=== PATIENT | female | born 1940 | race Caucasian/White ===

== ENCOUNTER 2019-09-01 08:43 | Observation (INO) | payer MEDICARE, SELFPAY ==
[2019-05-11 13:23] VITALS: BMI 25.3
[2019-09-01] VITALS (11 sets, daily range): BP systolic 133–179; BP diastolic 52–73; PULSE 67–85; RESP 15–18; TEMP 36.6–36.8; O2SAT 95–100; BMI 24.3; BMI 24.1
--- NOTE | 2019-09-01 08:56 | EKG12_ITS ---
Test Reason : SYNCOPE Blood Pressure : / mmHG Vent. Rate : 074 BPM Atrial Rate : 074 BPM P-R Int : 172 ms QRS Dur : 082 ms QT Int : 366 ms P-R-T Axes : 064 029 051 degrees QTc Int : 406 ms Normal sinus rhythm Possible Left atrial enlargement Nonspecific ST abnormality Abnormal ECG Reconfirmed by MUSTAPHA BOWERS, TAJ ([id number]), purchasing expeditor NARESH OTT ([id number] on 09/06/2019 8:25:00 AM Referred By: Ayesha Piper Confirmed By:TAJ LUCIANO MD
--- NOTE | 2019-09-01 08:56 | CT_ITS ---
STUDY: CT BRAIN WITHOUT CONTRAST REASON FOR EXAM: Female, 78 years old. Syncopal episode. RADIATION DOSAGE (If Supplied By Facility): CTDIvol = ( 44.99 ) mGy, DLP = ( 745.49 ) mGycm TECHNIQUE: Transaxial CT imaging of the brain was performed without administration of intravenous contrast material. Individualized dose optimization techniques were used for this CT. COMPARISON: No relevant priors. FINDINGS: Normal soft tissue structures. Normal calvarium. There is mild cerebral atrophy with widening of the extra-axial spaces and ventricular dilatation. Normal white matter tracts of the cerebral hemispheres. Normal basal ganglia and thalami. Normal brainstem. There is mild cerebellar atrophy. There is no intracranial hemorrhage. There are no findings of an acute ischemic infarction. Normal visualized paranasal sinuses. CT/Brain/Head without Contrast IMPRESSION: Chronic involutional changes of the brain. Electronically Signed: Panda Diez, at 9:53 EST , Service support ,
--- NOTE | 2019-09-01 08:57 | RAD_ITS ---
STUDY: X-RAY CHEST REASON FOR EXAM: Female, 78 years old. Syncopal episodes. TECHNIQUE: Single AP portable view of the chest. COMPARISON: None. FINDINGS: EKG electrodes are seen. There is evidence of an accessory right first rib. Hyperinflation. No acute abnormality is seen. There is no demonstrated pleural abnormality. Normal size heart. Normal mediastinum and chris. Normal visualized pulmonary arteries. There is atherosclerotic calcification of the aortic arch with tortuosity. Normal visualized thoracic spine. Normal visualized ribs, clavicles, and shoulders. There is no demonstrated abnormality of the visualized soft tissue structures of the upper abdomen. RAD/Chest 1 View (Portable) IMPRESSION: Hyperinflation. Accessory right first rib. Electronically Signed: Panda Diez, at 9:30 EST , Service support ,
--- NOTE | 2019-09-01 09:04 | ED.DCSUM_ITS ---
- ER Visit Summary Date of Service: 09/01/19 Chief Complaint: Syncope History of Present Illness: The patient is a 78 F who presents with her for syncopal episode. Patient was sitting in her recliner prior to bedtime last night. She was starting to fall asleep, and she got up to use the bathroom to put her eyedrops in. She felt dizzy and sat down on the toilet. Her said that she briefly lost consciousness. She was breathing irregularly and talking gibberish. He also said her eyes rolled back into her head. He denies any seizure activity. The patient regained consciousness spontaneously. She seemed to be doing better and they went to bed. He checked on her several times through the night, and she seemed to be doing okay. She woke up today with persistent dizziness. She feels lightheaded. She has had this on and off for months. She has also been having migraines and vision issues. She is following with ophthalmology and is being treated for cataracts. She denies any other speech changes or vision changes. Denies any facial droop, focal weakness or numbness. Denies chest pain. She does not take blood thinners. Denies any trauma. Physical Examination: Afebrile and vital signs are unremarkable. Blood pressure 163/73. She is alert and oriented. No acute distress. Normal gait. Cranial nerves grossly intact. Normal strength and sensation. Normal cerebellar testing. NIH stroke scale is 0. Heart regular rate and rhythm. Lungs clear. Skin appears normal. Test Results: EKG shows sinus rhythm at a rate of [address] changes. No acute ischemia or infarction pattern. We are awaiting blood work, chest x-ray, and CT brain. Emergency Department Course and Treatment: Patient presents after a syncopal episode. She has vision changes, but they seem to be chronic and associated with cataracts. She did have some speech changes, but I believe these were related to the syncopal episode. She does not have stroke symptoms or focal stroke findings. Her NIH was 0. She was placed on the monitor. We checked an EKG, labs, and will check imaging. She will likely need admission for further care. Chest x-ray showed nothing acute. CT brain showed chronic changes. CBC, BMP, coags, troponin all unremarkable. On reevaluation, patient had no new or different symptoms. Neurologic exam was stable. I believe she will need inpatient care given her continued symptoms, age, and risk factors. She will need evaluation for syncope. Although she does not have classic symptoms of stroke. I believe she will need further neurologic imaging. I did not order CTAs emergently as her NIH is 0. I spoke with the hospitalist who will admit for further care. Treatment Plan: As above Disposition: PCU observation Impression: 1. Syncope This note was generated with [employer] dictation software. It may contain incorrect words, spelling, and punctuation that were not noted in review of the chart prior to signing ED Disposition - Plan for ED Patient: Referrals: Amanda Hankins, [id number] [Primary Care Provider] -
[2019-09-01 09:25] LABS: Absolute Lymphocyte Count 1.45 X10^3/uL (0.83-4.51); Absolute Neutrophil Count 4.9 X10^3/uL (2.0-7.7); Basophil# 0.03 X10^3/uL; Basophil% 0.4 % (0-1); Eosinophil# 0.03 X10^3/uL; Eosinophils% 0.4 % (0-5); Hematocrit 38.7 % (37-47); Hemoglobin 12.9 g/dL (12.0-15.0); Lymphocyte # 1.45 X10^3/ul (4.0); Mean Corp Hgb Conc 33.3 g/dL (32-36); Mean Corpuscular Hgb 31.2 pg (27.0-32.0); Mean Corpuscular Volume 93.5 fL (81-99); Mean Platelet Vol. 9.5 fl (6.2-12.0); Monocyte# 0.77 X10^3/uL; Monocyte% 10.6 % (0-10); NRBC Flagged by Analyzer 0 % (0-5); Neutrophil # 4.93 X10^3/uL (2.7-7.7); Neutrophil % 68.2 % (47-70); Platelet Count 242 K/mm3 (150-450); RBC Distribution Width CV 13.2 % (11.6-14.6); RBC Distribution Width SD 45.1 fl (35.1-43.9); Red Blood Count 4.14 M/mm3 (4.2-5.4); White Blood Count 7.2 K/mm3 (4.4-11.0)
[2019-09-01 09:37] LABS: Prothrombin Time (Protime)PT. 13.2 SECONDS (11.7-14.9)
[2019-09-01 09:44] LABS: Anion Gap 7 (5-15); BUN 24 mg/dL (7-18); BUN/Creat Ratio 23.8 RATIO (10-20); Calcium,Total 10.1 mg/dL (8.5-10.1); Chloride 100 mmol/L (98-107); Creatinine, Serum 1.01 mg/dL (0.55-1.02); EST Glomerular Filtration Rate 56 mL/min (>60); Est Glom Filt Rate - Afr Amer 68 mL/min (>60); Estimated Creatinine Clearance 34.08 ml/min; Glucose 108 mg/dL (74-106); Potassium 4.4 mmol/L (3.5-5.1); Sodium Level 136 mmol/L (136-145)
--- NOTE | 2019-09-01 10:13 | HP.PCM_ITS ---
History of Present Illness Date of Admission: 09/01/19 Chief Complaint: syncope The patient is a 78 year old F with past medical history as listed which includes hypertension, hyperlipidemia and breast cancer. She was admitted through the ED on 09/01/2019 with a complaint of syncope. History was taken from patient and her . Patient got up to go to the bathroom prior to going to bed last night and says she felt dizzy and sat down on the toilet. She called out to her that she was feeling dizzy. states when he went in the she became confused and started talking gibberish and then he noted that she briefly lost consciousness. He noted that her eyes rolled back into her head and she appeared to have stopped breathing and this lasted for a few seconds. He said he gave her [id number] resuscitation and told her to breathe. Patient responded that she was breathing and he notices that she started coming around. She had a similar incident about 6 weeks ago but refused to seek medical care then. Patient felt dizzy upon waking up this morning, and also felt lightheaded so she decided to see her PCP. However PCP was fully booked and could not fit her and so they decided to come into the ED. Patient admits to bilateral blurred vision since she had a cataract surgery in June 2019 and states she is followed up with her associate material handler who told her that there is no problem with her eyes. She denied any tingling or numbness or focal weakness. Review of systems otherwise negative. In the ED vitals were significant for blood pressure 163/73. EKG showed normal sinus rhythm with heart rate of 74. CT of the brain was negative for any intracranial pathology and states x-ray showed no acute cardiopulmonary pathology. Both CBC and BMP were unremarkable. She has been admitted to be managed for syncope. Of note initial troponin was also negative. 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) Medical History: Medical History (Last Reviewed 05/11/19 @ 13:22 by Nohemy Overton) Anemia D64.9 Breast cancer C50.919 Diastolic dysfunction I51.9 Heart disease I51.9 Hyperlipidemia E78.5 Osteopenia M85.80 RIGHT LOWER JAW LASER SURGERY Hypertension I10 Allergies codeine Allergy (Verified 09/01/19 08:47) Nausea Penicillins Allergy (Verified 09/01/19 08:47) Rash sulfamethoxazole [From Septra] Allergy (Verified 09/01/19 08:47) Unknown trimethoprim [From Septra] Allergy (Verified 09/01/19 08:47) Rash meperidine HCl [From Demerol] Adverse Reaction (Verified 09/01/19 08:47) Nausea Home Medications: Ambulatory Orders Medication Instructions Recorded Atenolol 50 mg PO DAILY 10/02/14 Calcium Carb/Vitamin D 1 tab PO DAILY@0800 10/02/14 [Caltrate-600 With Vit D Tab] Hydrochlorothiazide 12.5 mg PO DAILY 10/02/14 Ipratropium [place] 0.06% 2 spray NASAL DAILY 10/02/14 [ATROVENT NASAL SPRAY] Multivitamins,Ther W-Minerals 1 tablet PO DAILY 10/02/14 [Multivitamin With Minerals] Vitamin B Complex [B Complex] 1 tab PO DAILY 10/02/14 Lactulose 30 ml PO QHS 04/01/15 Acetaminophen [Tylenol Extra 500 mg PO Q6H PRN PRN 11/21/15 Strength] L.acidoph,Paracasei, B.lactis 1 - 2 tab PO DAILY 11/21/15 [Probiotic] Meloxicam [Mobic] 15 mg PO DAILY 01/19/17 Anastrozole [Arimidex] 1 mg PO DAILY 90 Days #90 tablet 03/06/19 Levothyroxine [Synthroid] 25 mcg PO DAILY 05/11/19 Carboxymethylcellulose Sodium 1 drp EACH EYE 4X/DAY PRN PRN 09/01/19 [Refresh Tears] Sodium Chloride [Christiano-128] 1 drp EACH EYE QHS 09/01/19 Surgical History: Surgical History (Last Reviewed 05/11/19 @ 13:22 by Nohemy Overton) History of appendectomy Z90.49 History of dilatation and curettage Z98.890 History of root canal procedure Z98.890 History of tonsillectomy Z90.89 Hx of arthroscopic knee surgery Z98.890 bilateral Surgical History: - - lumpectomy for breast cancer Psychiatric History: No pertinent psych hx 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 Denies: Chest Pain, Chest Pressure, Chest Tightness, Heaviness, Light Headedness, Palpitations Respiratory: Denies: Cough, Shortness of Breath, Shortness of breath at rest, Shortness of breath upon exertion, Sputum production Gastrointestinal: Denies: Abdominal Pain, Nausea, Vomiting Genitourinary: Denies: Dysuria Musculoskeletal: Denies: Joint Pain, Joint Tenderness Skin: Denies: Rash, Wounds Neurological: Reports: Blurred vision, Headaches. Denies: Balance problems, Change in Speech, Slurred speech, Confusion, Difficulty swallowing, Focal weakness, Incoordination, Numbness, Tingling, Tremor, Seizures Psychiatric: Denies: Anxiety, Depression, Homicidal Ideations, Suicidal Ideations Hematologic/ Lymphatic: Denies: Easy Bruising, Easy Bleeding VTE Information - Inpt Only VTE Present on Admission: No VTE Pharm Prophylaxis ordered?: Yes Patient Problems: Active and Suspected Problems (Last Reviewed 05/11/19 @ 13:22 by Nohemy Overton) Syncope (Acute) - Physical Exam Vitals/I&O's: Vital Signs Temp Pulse Resp BP Pulse Ox 98.2 F 78 15 170/52 H 100 09/01/19 08:44 09/01/19 10:00 09/01/19 10:00 09/01/19 10:00 09/01/19 10:00 Oxygen Delivery Method Room Air Weight: 129 lb Body Mass Index (BMI) 24.3 General: Alert, Oriented x3, Cooperative, No apparent distress HEENT: Atraumatic, PERRLA, EOMI, Normocephalic Oral: Moist Mucosa Neck: Supple, No JVD, Negative Carotid Bruits Lungs: Clear to auscultation, Normal air movement Cardiovascular: Regular rate, Regular Rhythm, Normal S1, Normal S2, No murmurs Abdomen: Bowel Sounds Present, Soft, Non Tender, Non-Distended, No Hepato- splenomegaly Extremities: No clubbing, No cyanosis, No edema, Capillary Refill Less than 3 Seconds Skin: No rashes, No breakdown Musculoskeletal: No Tenderness to Palpation of Joints or Extremities Lymphatic: No Cervical, Supraclavicular, or Inguinal Adenopathy Neurological: Cranial nerves II-XII grossly intact, Neuro grossly intact, Motor Exam 5/5 strength throughout, Sensory exam intact to light touch and pain, Coordination normal Psych/Mental Status: Normal Affect, Appropriate, Alert and oriented to time, place, person, mood and affect Laboratory Results 09/01/19 09:15: WBC 7.2, RBC 4.14 L, Hgb 12.9, Hct 38.7, MCV 93.5, MCH 31.2, MCHC 33.3, RDW Std Deviation 45.1 H, RDW Coeff of Jess 13.2, Plt Count 242, MPV 9.5, Immature Gran % (Auto) 0.400, Neut % (Auto) 68.2, Lymph % (Auto) 20.0, [place] % (Auto) 10.6 H, Eos % (Auto) 0.4, Baso % (Auto) 0.4, Absolute Neuts (auto) 4.9, Absolute Lymphs (auto) 1.45, Nucleated RBC % 0 09/01/19 09:15: PT 13.2, INR 1.0, APTT 30.0 09/01/19 09:15: Sodium 136, Potassium 4.4, Chloride 100, Carbon Dioxide 29.0, Anion Gap 7, BUN 24 H, Creatinine 1.01, Estim Creat Clear Calc 34.08, Est GFR (MDRD) Af Amer 68, Est GFR (MDRD) Non-Af 56 L, BUN/Creatinine Ratio 23.8 H, Glucose 108 H, Calcium 10.1, Troponin I < 0.[address] 09/01/19 08:56 IMPRESSION: Chronic involutional changes of the brain. Electronically Signed: Panda Diez, at 9:53 EST , Service support , Chest X-Ray 09/01/19 08:57 IMPRESSION: Hyperinflation. Accessory right first rib. Electronically Signed: Panda Diez, at 9:30 EST , Service support , Assessment/Plan All Active Problems (Last Reviewed 05/11/19 @ 13:22 by Nohemy Overton) Other specified disorders of bone density and structure, unspecified site (Acute) Osteopenia (Acute) Vaginal dryness (Acute) Jaw pain (Acute) Jaw pain, non-TMJ (Acute) Hyponatremia (Acute) Syncope (Acute) 78-year-old female admitted with complaint of syncope 1. Syncope * etiology is not clear, as it could be neurological, such as a seizure or stroke, or even possibly cardiac * admit to PCU with telemetry * fall precautions * CT of the brain was unremarkable * get MRI of brain and CTA of head and neck * 2D echo * PT/OT consult * neurology consult * get EEG 2. Hypertension: on hydrochlorthiazide and atenolol. controlled 3. Hypothyroidism: on synthroid 4. History of breast cancer: s/p lumpectomy. On anastrozole DVT prophylaxis: lovenox Code Visit OBSV E&M: 16746 Initial observation care L3
--- NOTE | 2019-09-01 10:16 | NURSING ---
PCU KORAM SYNCOPE
--- NOTE | 2019-09-01 11:04 | CON.PCM_ITS ---
Problem List (1) Syncope Status: Acute Reason for Consult Date of Consultation: 09/01/19 Reason for Consultation: Syncope History of Present Illness: The patient is a 78 year old F with PMH HTN, HLD, history of breast cancer stat us post left lumpectomy, hypothyroidism, history of migraine admitted with syncope. History is obtained from the patient as well as medical records and patient's . Per she got up to go to the bathroom yesterday 08/31/2019 prior to going to bed and felt dizzy and sat on the toilet, later per she became less responsive, fainted with her eyes rolling back, she also appeared to have stopped breathing following which her gave breaths into her mouth, the whole event lasted for about 15 to 20 seconds per , following this the patient became conscious, there is no tongue bite, no urinary incontinence or postictal confusion, denies any witnessed seizures. Per she also had a syncopal episode about 6 weeks ago. Per patient she has a history of migraine headaches, and since her cataract surgery recently, her migraine headaches frequency has increased. But otherwise at baseline per patient her migraine headaches are occasional. At present patient denies any dizziness, focal motor weakness, sensory loss, visual disturbances or speech disturbances. Per patient lives with , does not use cane or walker to ambulate, denies any frequent falls, does drive and does not need any assistance for ADLs. 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) Medical History: Medical History (Last Reviewed 05/11/19 @ 13:22 by Nohemy Overton) Anemia D64.9 Breast cancer C50.919 Diastolic dysfunction I51.9 Heart disease I51.9 Hyperlipidemia E78.5 Osteopenia M85.80 RIGHT LOWER JAW LASER SURGERY Hypertension I10 Allergies codeine Allergy (Verified 09/01/19 08:47) Nausea Penicillins Allergy (Verified 09/01/19 08:47) Rash sulfamethoxazole [From Septra] Allergy (Verified 09/01/19 08:47) Unknown trimethoprim [From Septra] Allergy (Verified 09/01/19 08:47) Rash meperidine HCl [From Demerol] Adverse Reaction (Verified 09/01/19 08:47) Nausea Home Medications: Ambulatory Orders Medication Instructions Recorded Atenolol 50 mg PO DAILY 10/02/14 Calcium Carb/Vitamin D 1 tab PO DAILY@0800 10/02/14 [Caltrate-600 With Vit D Tab] Hydrochlorothiazide 12.5 mg PO DAILY 10/02/14 Ipratropium [place] 0.06% 2 spray NASAL DAILY 10/02/14 [ATROVENT NASAL SPRAY] Multivitamins,Ther W-Minerals 1 tablet PO DAILY 10/02/14 [Multivitamin With Minerals] Vitamin B Complex [B Complex] 1 tab PO DAILY 10/02/14 Lactulose 30 ml PO QHS 04/01/15 Acetaminophen [Tylenol Extra 500 mg PO Q6H PRN PRN 11/21/15 Strength] L.acidoph,Paracasei, B.lactis 1 - 2 tab PO DAILY 11/21/15 [Probiotic] Meloxicam [Mobic] 15 mg PO DAILY 01/19/17 Anastrozole [Arimidex] 1 mg PO DAILY 90 Days #90 tablet 03/06/19 Levothyroxine [Synthroid] 25 mcg PO DAILY 05/11/19 Carboxymethylcellulose Sodium 1 drp EACH EYE 4X/DAY PRN PRN 09/01/19 [Refresh Tears] Sodium Chloride [Christiano-128] 1 drp EACH EYE QHS 09/01/19 Surgical History: Surgical History (Last Reviewed 05/11/19 @ 13:22 by Nohemy Overton) History of appendectomy Z90.49 History of dilatation and curettage Z98.890 History of root canal procedure Z98.890 History of tonsillectomy Z90.89 Hx of arthroscopic knee surgery Z98.890 bilateral Lives: Spouse/ Significant Other Smoking Status: Never smoker Alcohol: None Drugs: None - *Family History Maternal Family History: Family History (Last Reviewed 05/11/19 @ 13:22 by Nohemy Overton) Mother Heart disease Father Heart disease Father Hypertension Review of Systems Constitutional: Reports: - - Complete ROS negative except as documented in HPI Patient Problems: Active and Suspected Problems (Last Reviewed 05/11/19 @ 13:22 by Nohemy Overton) Syncope (Acute) - Physical Exam Vitals/I&O's: Vital Signs Temp Pulse Resp BP Pulse Ox 98.2 F 78 15 170/52 H 100 09/01/19 08:44 09/01/19 10:00 09/01/19 10:00 09/01/19 10:00 09/01/19 10:00 Oxygen Delivery Method Room Air Weight: 58.513 kg Body Mass Index (BMI) 24.3 General: Alert HEENT: Normocephalic Neck: Supple Lungs: Normal air movement Cardiovascular: Normal S1, Normal S2 Abdomen: Bowel Sounds Present Extremities: No cyanosis Neurological: - - Conscious, alert, AOA x3, CN II to XII grossly intact, power 5/5 both upper and lower extremities, plantars B/L flexor, no pronator drift, no sensory loss, no cerebellar signs, gait deferred, reflexes + B/L B/S/T/K/A, No NR, fundus not visualized Psych/Mental Status: Normal Affect Laboratory Results 09/01/19 09:15: WBC 7.2, RBC 4.14 L, Hgb 12.9, Hct 38.7, MCV 93.5, MCH 31.2, MCHC 33.3, RDW Std Deviation 45.1 H, RDW Coeff of Jess 13.2, Plt Count 242, MPV 9.5, Immature Gran % (Auto) 0.400, Neut % (Auto) 68.2, Lymph % (Auto) 20.0, [place] % (Auto) 10.6 H, Eos % (Auto) 0.4, Baso % (Auto) 0.4, Absolute Neuts (auto) 4.9, Absolute Lymphs (auto) 1.45, Nucleated RBC % 0 09/01/19 09:15: PT 13.2, INR 1.0, APTT 30.0 09/01/19 09:15: Sodium 136, Potassium 4.4, Chloride 100, Carbon Dioxide 29.0, Anion Gap 7, BUN 24 H, Creatinine 1.01, Estim Creat Clear Calc 34.08, Est GFR (MDRD) Af Amer 68, Est GFR (MDRD) Non-Af 56 L, BUN/Creatinine Ratio 23.8 H, Glucose 108 H, Calcium 10.1, Troponin I < 0.015 Assessment/Plan All Active Problems (Last Reviewed 05/11/19 @ 13:22 by Nohemy Overton) Other specified disorders of bone density and structure, unspecified site (Acute) Osteopenia (Acute) Vaginal dryness (Acute) Jaw pain (Acute) Jaw pain, non-TMJ (Acute) Hyponatremia (Acute) Syncope (Acute) The patient is a 78 year old F with PMH HTN, HLD, history of breast cancer status post left lumpectomy, hypothyroidism, history of migraine admitted with syncope. History is obtained from the patient as well as medical records and patient's . Per she got up to go to the bathroom yesterday 08/31/2019 prior to going to bed and felt dizzy and sat on the toilet, later per she became less responsive, fainted with her eyes rolling back, she also appeared to have stopped breathing following which her gave breaths into her mouth, the whole event lasted for about 15 to 20 seconds per , following this the patient became conscious, there is no tongue bite, no urinary incontinence or postictal confusion, denies any witnessed seizures. Per she also had a syncopal episode about 6 weeks ago. Per patient she has a history of migraine headaches, and since her cataract surgery recently, her migraine headaches frequency has increased. But otherwise at baseline per sydni pizano her migraine headaches are occasional. At present patient denies any dizziness, focal motor weakness, sensory loss, visual disturbances or speech disturbances. Per patient lives with , does not use cane or walker to ambulate, denies any frequent falls, does drive and does not need any assistance for ADLs. CT head done on admission reported nothing acute Impression Syncope Plan -MRI brain -EEG -TTE -30 day event recorder -Cardiology consult -PT/OT/ST -GI/DVT prophylaxis -Fall precautions -Further medical management per hospitalist team -Please call with questions if any -Follow-up with neurology in 6 weeks -Thank you for allowing us to participate in patient's care and management This note has been generated using [employer] dictation software. It may contain incorrect words, spellings and punctuation that were not noted in the review of the note prior to signing Code Visit Inpatient E&M: 76390 Init Hosp L3
--- NOTE | 2019-09-01 11:10 | ECHOD_ITS ---
Reason For Study: SYNCOPE Procedure This was a 2D Doppler, Color Flow transthoracic echocardiogram. Exam performed portable in patient room. Left Ventricle Normal LV size. Left ventricular systolic function is normal. The estimated ejection fraction is 65 %. Stage 2 diastolic dysfunction. No regional wall motion abnormalities noted. Right Ventricle Normal RV size. Normal systolic function. Atria Normal left atrium. Normal right atrium. Mitral Valve Mild diffuse mitral valve thickening. Mild (1+) eccentric mitral valve insufficiency. Tricuspid Valve Normal tricuspid valve. Mild (1+) tricuspid valve insufficiency. Pulmonary artery systolic pressure is 34 mmHg. Aortic Valve Normal aortic valve. Trisinus/trileaflet aortic valve. Pulmonic Valve Normal pulmonic valve. Great Vessels Normal aortic root. The pulmonary artery is normal size. Normal inferior vena cava. Pericardium/Pleural No pericardial effusion. MMode/2D Measurements & Calculations LVIDd: 4.2 cm IVSd: 0.72 cm Ao root diam: 3.1 cm LVIDs: 2.9 cm LVPWd: 0.85 cm RVDd: 3.4 cm FS: 30.7 % LAV(MOD-bp): 43.0 ml LVAd ap4: 27.2 cm2 SV(MOD-sp4): 46.3 ml LAV(MOD-bp) Indexed: 27.9 ml/m2 EDV(MOD-sp4): 78.5 ml LAV(MOD-sp2): 40.5 ml EDV(sp4-el): 81.8 ml LAV(MOD-sp4): 43.5 ml LVAs ap4: 15.4 cm2 ESV(MOD-sp4): 32.2 ml ESV(sp4-el): 33.2 ml EF(MOD-sp4): 59.0 % EF(sp4-el): 59.4 % SV(sp4-el): 48.6 ml LA A4 area: 17.8 cm2 LA dimension(2D): 3.5 cm RA A4 area: 16.0 cm2 Time Measurements MV dec time: 0.21 sec Doppler Measurements & Calculations MV E max onesimo: 103.7 cm/sec Lat Peak E' Onesimo: 6.5 cm/sec Med Peak E' Onesimo: 7.5 cm/sec MV A max onesimo: 111.4 cm/sec E/E' lat: 16.1 E/E' med: 13.8 MV E/A: 0.93 Ao V2 max: 149.0 cm/sec AI max onesimo: 414.1 cm/sec LV V1 max: 139.2 cm/sec Ao max P.9 mmHg AI max P.6 mmHg LV V1 max P.7 mmHg AI dec slope: 335.7 cm/sec2 AI P1/2t: 361.3 msec PA V2 max: 90.4 cm/sec PI end-d onesimo: 106.2 cm/sec TR max onesimo: 274.1 cm/sec TR max P.1 mmHg Interpretation Summary Normal LV size. Left ventricular systolic function is normal. The estimated ejection fraction is 65 %. Stage 2 diastolic dysfunction. The global longitudinal strain = -23.9 % (normal). Ordering Physician: Ayesha Piper Referring Physician: ARNULFO DIOR Performed By: Brenda Paul, RDCS, RVT
--- NOTE | 2019-09-01 11:13 | CT_ITS ---
STUDY: CTA HEAD AND NECK WITH CONTRAST REASON FOR EXAM: Female, 78 years old. Syncopal episodes last night RADIATION DOSAGE (If Supplied By Facility): CTDIvol = ( 13.47 ) mGy, DLP = ( 548.90 ) mGycm TECHNIQUE: CT angiography was performed with a multi-detector CT scanner. Data acquisition was obtained from the skull base through the vertex following intravenous administration of IV 75mL [id number]-370 75mL. MIP images were reconstructed from the axial data set. Post-processing of the angiographic images was performed, with multiplanar reformation and 3D reconstruction. Individualized dose optimization techniques were used for this CT. COMPARISON: CT head September 01, 2019,, MRI brain May 08, 2016 FINDINGS: Normal bilateral petrous carotid arteries. Normal right cavernous carotid artery with a normal supraclinoid bifurcation. There is calcified plaque formation of the left cavernous carotid artery, without a cross-sectional luminal stenosis. Normal right A1 segments of the anterior cerebral artery. Normal left A1 segments of the anterior cerebral artery. There is non-visualization of the anterior communicating artery (ACOM). Normal bilateral A2 segments of the anterior cerebral arteries. Normal right M1 and M2 segments of the middle cerebral arteries, with a normal M1 bifurcation. Normal left M1 and M2 segments of the middle cerebral arteries, with a normal M1 bifurcation. There is non-visualization of the right posterior communicating artery (PCOM). There is non-visualization of the left posterior communicating artery (PCOM). Normal bilateral vertebral arteries. Normal basilar artery with a normal basilar bifurcation. The visualized bilateral superior cerebellar (SCA) arteries are normal. Normal bilateral P1, P2 and visualized P3 segments of the posterior cerebral arteries. There is no demonstrated aneurysm of the [place]. There is mild atrophy. Findings appear very similar to the prior study MRI May 08, 2016 allowing for differences in technique. AORTIC ARCH: Normal visualized aortic arch. Normal origins of the brachiocephalic, left common carotid, and left subclavian arteries. RIGHT CAROTID ARTERIES: There is atherosclerotic tortuous elongation of the right common carotid artery. There is mild atherosclerotic plaque formation with minimal narrowing of the right carotid bulb. There is mild atherosclerotic plaque formation of the origin of the right internal carotid artery with less than 50% cross sectional diameter stenosis. There is atherosclerotic tortuous elongation of the cervical portion of the right internal carotid artery. There is mild atherosclerotic plaque formation of the origin of the right external carotid artery with less than 50% cross sectional diameter stenosis. LEFT CAROTID ARTERIES: There is atherosclerotic tortuous elongation of the left common carotid artery. There is mild atherosclerotic plaque formation with minimal narrowing of the left carotid bulb. Normal origin of the left internal carotid (ICA) artery without a hemodynamically significant stenosis. There is atherosclerotic tortuous elongation of the cervical portion of the left internal carotid artery. Normal origin of the left external carotid artery (ECA). VERTEBRAL ARTERIES: Normal bilateral vertebral arteries. There is visualized degenerative change within the cervical spine. There is multilevel disc space narrowing and endplate sclerosis. C4-C5 C5-C6 there is moderate to severe right neural foramina narrowing. C6-C7 there is moderate left neural foraminal narrowing. There is visualized by apical thickening. CT/CTA Head AND Neck W/ Contrast IMPRESSION: Less than 50% stenosis of the right internal carotid artery, no significant stenosis of the left internal carotid artery. No evidence of aneurysmal dilatation stenosis or hemodynamically significant atherosclerotic disease of the cerebral vessels. Mild atrophy stable appearing brain parenchyma when compared to the prior study. Electronically Signed: Carlene Orlando MD at 12:40 EST Tel , Service support ,
--- NOTE | 2019-09-01 11:13 | MRI_ITS ---
STUDY: MRI BRAIN WITHOUT CONTRAST REASON FOR EXAM: Female, 78 years old. Syncope and incoherent speech TECHNIQUE: Standardized multiplanar fat and water weighted pulse sequences were obtained. COMPARISON: CT of the brain September 01, 2019 MRI of the brain May 08, 2016 FINDINGS: Moderate cerebral atrophy.. Normal white matter tracts of the supratentorial brain. Normal bilateral basal ganglia. Normal thalami. There is no extra-axial fluid accumulation. Normal flow voids within the major intracranial circulation suggesting patency by spin echo criteria. Normal sella turcica, pituitary gland, infundibular stalk, optic chiasm and hypothalamus. Normal tectal plate and pineal gland. Normal midbrain, cem and medulla. Normal cerebellum. Normal basal cisterns. Normal bilateral temporal bones. Normal bilateral internal auditory canals. Postsurgical changes status post bilateral optical lens implant. Mucous retention cyst in floor of right maxillary sinus. Minor mucosal thickening of the left maxillary and bilateral ethmoid air cells. Normal calvarium and skull base. Normal visualized soft tissue structures. Normal visualized upper cervical spine. No significant change since prior study MRI/Brain without Contrast IMPRESSION: Moderate atrophy without appreciable white matter disease or evidence for acute infarct Electronically Signed: Jeremy Farooq MD at 16:14 EST , Service support ,
[2019-09-01] MEDS: 0.9% Normal Saline 1,000 ML 75 ML IV (12:11)
[2019-09-01 13:29] LABS: Cholesterol 202 mg/dL (200); High Density Lipoprotein 72 mg/dL; Triglycerides 102 mg/dL; Very Low Density Lipoprotein 20 mg/dL (5-40)
[2019-09-01 15:03] LABS: Hemoglobin A1c 5.6 % (4.2-6.3)
--- NOTE | 2019-09-01 16:02 | EEG ---
- Electroencephalogram Date of service 09/01/2019 History EEG is being done in this 78 yr F to rule out seizures EEG Description: This is an 18 channel EEG with 10-20 lead placement system. Bipolar montages, and Referential montages were reviewed. Photic stimulation and Hyperventilation were performed. The posterior dominant rhythm is 10 HZ synchronous, symmetric, reacting to eye opening and closing. Photo stimulation elicited normal driving response but no abnormal photoparoxysmal response, Hyperventilation did not elicit any abnormal photoparoxysmal response. Sleep was identified. There is no abnormal background slowing noted. There was no epileptiform discharges or electrographic seizures noted during this recording. Muscle artefact noted during the record. EEG Interpretation This is a normal awake and asleep EEG. There is no epileptiform discharges or electrographic seizures noted during the record.
[2019-09-02] VITALS (7 sets, daily range): BP systolic 135–178; BP diastolic 52–83; PULSE 66–83; RESP 16; TEMP 36.5–36.9; O2SAT 96–99
[2019-09-02] MEDS: Levothyroxine 25 MCG TABLET PO (05:02)
[2019-09-02 06:24] LABS: Absolute Lymphocyte Count 1.68 X10^3/uL (0.83-4.51); Basophil# 0.03 X10^3/uL; Basophil% 0.5 % (0-1); Eosinophil# 0.08 X10^3/uL; Eosinophils% 1.2 % (0-5); Hematocrit 35.3 % (37-47); Hemoglobin 11.6 g/dL (12.0-15.0); Lymphocyte # 1.68 X10^3/ul (4.0); Lymphocyte % 25.6 % (19-41); Mean Corp Hgb Conc 32.9 g/dL (32-36); Mean Corpuscular Hgb 30.9 pg (27.0-32.0); Mean Corpuscular Volume 94.1 fL (81-99); Mean Platelet Vol. 9.9 fl (6.2-12.0); Monocyte# 0.71 X10^3/uL; Monocyte% 10.8 % (0-10); NRBC Flagged by Analyzer 0 % (0-5); Neutrophil # 4.03 X10^3/uL (2.7-7.7); Neutrophil % 61.6 % (47-70); Platelet Count 210 K/mm3 (150-450); RBC Distribution Width CV 13.6 % (11.6-14.6); RBC Distribution Width SD 46.5 fl (35.1-43.9); Red Blood Count 3.75 M/mm3 (4.2-5.4); White Blood Count 6.6 K/mm3 (4.4-11.0)
[2019-09-02 06:45] LABS: Anion Gap 6 (5-15); BUN 22 mg/dL (7-18); BUN/Creat Ratio 22.9 RATIO (10-20); Chloride 105 mmol/L (98-107); Creatinine, Serum 0.96 mg/dL (0.55-1.02); EST Glomerular Filtration Rate 59 mL/min (>60); Est Glom Filt Rate - Afr Amer 72 mL/min (>60); Estimated Creatinine Clearance 35.86 ml/min; Glucose 96 mg/dL (74-106); Potassium 3.9 mmol/L (3.5-5.1); Sodium Level 139 mmol/L (136-145)
[2019-09-02] MEDS: Calcium Carb/Vitamin D 1 TABLET Tablet PO (09:25)
[2019-09-02] MEDS: Multivitamins,Ther W-Minerals Tablet 1 TABLET PO (09:25)
[2019-09-02] MEDS: Vitamin B Comp W-C Capsule 1 CAP PO (09:25)
[2019-09-02] MEDS: Anastrozole 1 MG Tablet PO (09:26)
[2019-09-02] MEDS: hydroCHLOROthiazide 12.5mg 12.5 MG PO (09:27)
[2019-09-02] MEDS: Atenolol 50 MG Tablet PO (09:28)
[2019-09-02] MEDS: Meloxicam 15 MG Tablet PO (09:28)
--- NOTE | 2019-09-02 13:39 | PCM.DC ---
- Discharge Diagnoses Current Active Problems: Current Active and Chronic Problems (Last Reviewed 05/11/19 @ 13:22 by Nohemy Overton) Syncope (Acute) You will use the following diet at home:: Cardiac Your food should be the consistency of: Regular Your liquids should be the consistency of: Regular/Thin Discharge Activity: Return to Normal Activity Weight Bearing Status: Weight bearing as tolerated Call your doctor if you observe: Shortness of breath, Dizziness, Fainting spells, Increased palpitations (irregular heartbeat) Instructions: What Is Syncope?, Diagnosing Syncope Additional Instructions: to have 30 day event monitor placed on Wednesday09/04/19. for 48 hour event monitor placement prior to discharge. Started on low dose statin o/a of elevated statin Allergies/Adverse Reactions: Allergies codeine Allergy (Verified 09/01/19 08:47) Nausea Penicillins Allergy (Verified 09/01/19 08:47) Rash sulfamethoxazole [From Septra] Allergy (Verified 09/01/19 08:47) Unknown trimethoprim [From Septra] Allergy (Verified 09/01/19 08:47) Rash meperidine HCl [From Demerol] Adverse Reaction (Verified 09/01/19 08:47) Nausea Medications to take at Discharge Atenolol 50 mg PO DAILY 10/02/14 Calcium Carb/Vitamin D [Caltrate-600 With Vit D Tab] 1 tab PO DAILY@0800 10/02/14 Hydrochlorothiazide 12.5 mg PO DAILY 10/02/14 Ipratropium [place] 0.06% [ATROVENT NASAL SPRAY] 2 spray NASAL DAILY 10/02/14 Multivitamins,Ther W-Minerals [Multivitamin With Minerals] 1 tablet PO DAILY 10/02/14 Vitamin B Complex [B Complex] 1 tab PO DAILY 10/02/14 Lactulose 30 ml PO QHS 04/01/15 Acetaminophen [Tylenol] 500 mg PO Q6H PRN PRN 11/21/15 L.acidoph,Paracasei, B.lactis [Probiotic] 1 - 2 tab PO DAILY 11/21/15 Meloxicam [Mobic] 15 mg PO DAILY 01/19/17 Anastrozole [Arimidex] 1 mg PO DAILY 90 Days #90 tablet 03/06/19 Levothyroxine [Synthroid] 25 mcg PO DAILY 05/11/19 Carboxymethylcellulose Sodium [Refresh Tears] 1 drp EACH EYE 4X/DAY PRN PRN 09/01/19 Sodium Chloride [Christiano-128] 1 drp EACH EYE QHS 09/01/19 Atorvastatin Calcium [Lipitor] 20 mg PO QHS #30 tab 09/02/19 The following prescriptions were given: Atorvastatin Calcium [Lipitor] 20 mg PO QHS #30 tab Transmission Status: Pending to [facility] [facility]. Orders to be completed after discharge: Cardiac Holter Monitor, Set-Up [[facility]] Location: None Selected Primary Care Physician: Amanda Hankins [employer] [Primary Care Provider] - Please follow up with your Primary Care Physician in: one week Test Results: Test results from this visit will be discussed in further detail at your follow-up appointment, if applicable. Please Follow Up With: London Rodriguez MD When: 1-2 weeks; call office for appointment Proposed Discharge Date: 09/02/19
--- NOTE | 2019-09-02 14:52 | DS.PCM_ITS ---
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 Electronically Signed: Panda Diez, at 9:53 EST , Service support , Chest X-Ray 09/01/19 08:57 IMPRESSION: Hyperinflation. Accessory right first rib. Electronically Signed: Panda Diez, at 9:30 EST , Service support , Brain MRI 09/01/19 11:13 IMPRESSION: Moderate atrophy without appreciable white matter disease or evidence for acute infarct Electronically Signed: Jeremy Farooq MD at 16:14 EST , Service support , Head/Neck CTA 09/01/19 11:13 IMPRESSION: Less than 50% stenosis of the right internal carotid artery, no significant stenosis of the left internal carotid artery. No evidence of aneurysmal dilatation stenosis or hemodynamically significant atherosclerotic disease of the cerebral vessels. Mild atrophy stable appearing brain parenchyma when compared to the prior study. Electronically Signed: Carlene Orlando MD at 12:40 EST Tel , Service support , Interpretation Summary Normal LV size. Left ventricular systolic function is normal. The estimated ejection fraction is 65 %. Stage 2 diastolic dysfunction. The global longitudinal strain = -23.9 % (normal). neurology- Dr Mina Operations: None Procedures: 2-D Echocardiogram, Electroencephalogram Summary of Care Provided: The patient is a 78 year old F with past medical history as listed which includes hypertension, hyperlipidemia and breast cancer. She was admitted through the ED on 09/01/2019 with a complaint of syncope. History was taken from patient and her . Patient got up to go to the bathroom prior to going to bed last night and says she felt dizzy and sat down on the toilet. She called out to her that she was feeling dizzy. states when he went in the she became confused and started talking gibberish and then he noted that she briefly lost consciousness. He noted that her eyes rolled back into her head and she appeared to have stopped breathing and this lasted for a few seconds. He said he gave her [id number] resuscitation and told her to breathe. Patient responded that she was breathing and he notices that she started coming around. She had a similar incident about 6 weeks ago but refused to seek medical care then. Patient felt dizzy upon waking up this morning, and also felt lightheaded so she decided to see her PCP. However PCP was fully booked and could not fit her and so they decided to come into the ED. Patient admits to bilateral blurred vision since she had a cataract surgery in June 2019 and states she is followed up with her compacting machine operator/tender who told her that there is no problem with her eyes. She denied any tingling or numbness or focal weakness. Review of systems otherwise negative. In the ED vitals were significant for blood pressure 163/73. EKG showed normal sinus rhythm with heart rate of 74. CT of the brain was negative for any intracranial pathology and states x-ray showed no acute cardiopulmonary pathology. Both CBC and BMP we re unremarkable. She was admitted to be managed for syncope. Of note initial troponin was also negative. Neurology was consulted. Patient had an EEG which was normal. MRI of the brain showed no evidence of stroke and CTA of the head and neck showed less than 50% stenosis of the right internal carotid artery no significant stenosis of the left internal carotid artery and no evidence of aneurysmal dilatation, stenosis or hemodynamically significant atherosclerotic disease of the cerebral vessels. Patient had a 2D echo which showed EF of 65% with stage II diastolic dysfunction and normal left ventricular size with trace mitral valve insufficiency tricuspid valve insufficiency. Aortic valve was normal as well as pulmonary valve. Patient remained stable. Lipid panel showed mildly elevated cholesterol and she was started on low-dose atorvastatin. She was discharged home with a 48-hour Holter monitor and is to have a 30-day event monitor placed the outpatient on 09/04/2019. She is to follow-up with her primary care doctor and neurology and is also to follow-up with cardiology- she was referred to Dr Rodriguez . Patient seen and examined prior to discharge. She had no complaints and felt well. Dizziness and lightheadedness had and recurred. Review of systems otherwise negative. Labs and vitals reviewed. Medications reviewed and reconciled. Patient did express concern about her blood pressure she said he had been fluctuating with systolic ranging from the 160s down to the 130s. Patient was counseled to continue her current home medications- atenolol, and to keep a log of her blood pressure at home to review with her primary care doctor and for adjustment of medications to be made as needed. o/e: Vital Signs Height 5 ft 1 in Weight: 127 lb 10.362 oz Weight in Pounds 127.6 lbs Pulse Ox 96 Temperature 98.2 F Pulse Rate [Standing] 83 Pulse Rate [Sitting] 72 Pulse Rate [Lying] 68 Pulse Rate 66 Respiratory Rate 16 Blood Pressure [Standing] 135/58 Blood Pressure [Sitting] 142/63 Blood Pressure [Lying] 135/52 Blood Pressure 153/64 Blood Pressure Position Sitting General: Alert, Oriented x3, Cooperative, No apparent distress HEENT: Atraumatic, PERRLA, EOMI, Normocephalic Oral: Moist Mucosa Neck: Supple, No JVD, Negative Carotid Bruits Lungs: Clear to auscultation, Normal air movement Cardiovascular: Regular rate, Regular Rhythm, Normal S1, Normal S2, No murmurs Abdomen: Bowel Sounds Present, Soft, Non Tender, Non-Distended, No Hepato- splenomegaly Extremities: No clubbing, No cyanosis, No edema, Capillary Refill Less than 3 Seconds Skin: No rashes, No breakdown Musculoskeletal: No Tenderness to Palpation of Joints or Extremities Lymphatic: No Cervical, Supraclavicular, or Inguinal Adenopathy Neurological: Cranial nerves II-XII grossly intact, Neuro grossly intact, Motor Exam 5/5 strength throughout, Sensory exam intact to light touch and pain, Coordination normal Psych/Mental Status: Normal Affect, Appropriate, Alert and oriented to time, place, person, mood and affect Plan as above. Results of 48-hour Holter monitor and 30-day event monitor is to be sent to Dr. Rodriguez for interpretation and also to be sent to her primary care doctor. - Physical Exam Vitals/I&O's: Vital Signs Temp Pulse Resp BP Pulse Ox 98.2 F 66 16 153/64 H 96 09/02/19 12:49 09/02/19 12:49 09/02/19 12:49 09/02/19 12:49 09/02/19 12:49 Oxygen Delivery Method Room Air Weight: 127 lb 10.362 oz Body Mass Index (BMI) 24.1 Intake and Output for Last 24 Hours 08/31/19 09/01/19 09/02/19 23:59 23:59 23:59 Intake Total 968.75 / 968.75 571.25 / 571.25 Balance 968.75 / 968.75 571.25 / 571.25 Laboratory Results 09/01/19 09:15: Hemoglobin A1c 5.6 09/02/19 05:53: WBC 6.6, RBC 3.75 L, Hgb 11.6 L, Hct 35.3 L, MCV 94.1, MCH 30.9, MCHC 32.9, RDW Std Deviation 46.5 H, RDW Coeff of Jess 13.6, Plt Count 210, MPV 9.9, Immature Gran % (Auto) 0.300, Neut % (Auto) 61.6, Lymph % (Auto) 25.6, [place] % (Auto) 10.8 H, Eos % (Auto) 1.2, Baso % (Auto) 0.5, Absolute Neuts (auto) 4.0, Absolute Lymphs (auto) 1.68, Nucleated RBC % 0 09/02/19 05:53: Sodium 139, Potassium 3.9, Chloride 105, Carbon Dioxide 28.0, Anion Gap 6, BUN 22 H, Creatinine 0.96, Estim Creat Clear Calc 35.86, Est GFR (MDRD) Af Amer 72, Est GFR (MDRD) Non-Af 59 L, BUN/Creatinine Ratio 22.9 H, Glucose 96, Calcium 9.0 Discharge Activity: Return to Normal Activity Weight Bearing Status: Weight bearing as tolerated Call your doctor if you observe: Shortness of breath, Dizziness, Fainting sp ells, Increased palpitations (irregular heartbeat) Home Medications: Medications to take at Discharge Atenolol 50 mg PO DAILY 10/02/14 Calcium Carb/Vitamin D [Caltrate-600 With Vit D Tab] 1 tab PO DAILY@0800 10/02/14 Hydrochlorothiazide 12.5 mg PO DAILY 10/02/14 Ipratropium [place] 0.06% [ATROVENT NASAL SPRAY] 2 spray NASAL DAILY 10/02/14 Multivitamins,Ther W-Minerals [Multivitamin With Minerals] 1 tablet PO DAILY 10/02/14 Vitamin B Complex [B Complex] 1 tab PO DAILY 10/02/14 Lactulose 30 ml PO QHS 04/01/15 Acetaminophen [Tylenol] 500 mg PO Q6H PRN PRN 11/21/15 L.acidoph,Paracasei, B.lactis [Probiotic] 1 - 2 tab PO DAILY 11/21/15 Meloxicam [Mobic] 15 mg PO DAILY 01/19/17 Anastrozole [Arimidex] 1 mg PO DAILY 90 Days #90 tablet 03/06/19 Levothyroxine [Synthroid] 25 mcg PO DAILY 05/11/19 Carboxymethylcellulose Sodium [Refresh Tears] 1 drp EACH EYE 4X/DAY PRN PRN 09/01/19 Sodium Chloride [Christiano-128] 1 drp EACH EYE QHS 09/01/19 Atorvastatin Calcium [Lipitor] 20 mg PO QHS #30 tab 09/02/19 Following Prescrptions Were Given to Patient: Atorvastatin Calcium [Lipitor] 20 mg PO QHS #30 tab Transmission Status: Received by [address] Orders: 30 Day Event Recorder Preventi [[facility]] Time Frame: 2 Days, Location: None Selected Cardiac Holter Monitor, Set-Up [[facility]] Location: None Selected Primary Care Physician: Amanda Hankins NP-C [Primary Care Provider] - Please follow up with your Primary Care Physician in: one week Please Follow Up With: London Rodriguez MD When: 1-2 weeks; call office for appointment Please Follow Up With: Amanda Hankins NP-C Patient Instructions: What Is Syncope?, Diagnosing Syncope Disposition: Home Minutes spent on discharge:: 40 Patient Condition:: Stable Medical Necessity - Tobacco Use Smoking Status: Never smoker Tobacco Use: Non-smoker Meaningful Use Info Meaningful Use Diagnoses (Choose all that apply): None applicable Code Visit OBSV E&M: 23646 Observation care discharge
--- NOTE | 2019-09-02 14:52 | NURSING ---
Reviewed charting of SN Carlitos
== END 2019-09-02 13:42 | disposition home or self-care (01) ==
LOC: ED 09:20 → PCU 10:38
PROVIDERS: Admitting Provider Student in an Organized Health Care Education/Training Program; Emergency Provider Emergency Medicine; Family Provider Nurse Practitioner Primary Care; PCP Nurse Practitioner Primary Care; Referring Provider Student in an Organized Health Care Education/Training Program; Visit Provider Student in an Organized Health Care Education/Training Program
DX: R55 Syncope and collapse (principal); I10 Essential (primary) hypertension; E78.5 Hyperlipidemia, unspecified; R29.700 NIHSS score 0; H53.8 Other visual disturbances; E03.9 Hypothyroidism, unspecified; G43.909 Migraine, unspecified, not intractable, without status migrainosus; I08.1 Rheumatic disorders of both mitral and tricuspid valves; Z79.899 Other long term (current) drug therapy; Z85.3 Personal history of malignant neoplasm of breast
CPT/HCPCS: 36415; 70450; 70496; 70498; 70551; 71045; 80048; 80061; 83036; 84484; 85025; 85610; 85730; 93005; 93225; 93226; 93306; 95819; 96360; 96361; 99218; 99285; J7030; Q9967; A4216; G0378

== ENCOUNTER → 2019-09-02 14:46 | Outpatient (CLI) | payer MEDICARE, SELFPAY ==
[2019-09-01 11:18] VITALS: BMI 24.1
== END ==
PROVIDERS: Family Provider Nurse Practitioner Primary Care; PCP Nurse Practitioner Primary Care; Referring Provider Student in an Organized Health Care Education/Training Program; Visit Provider Student in an Organized Health Care Education/Training Program
DX: R55 Syncope and collapse (principal)
CPT/HCPCS: 93225; 93226

== ENCOUNTER → 2019-12-05 08:57 | Outpatient (CLI) | payer MEDICARE, SELFPAY ==
[2019-11-17 13:16] VITALS: BMI 24.9
[2019-11-24 07:52] VITALS: BMI 25.4
--- NOTE | 2019-12-05 18:23 | PCM.TILTTABL ---
- Summary Pre Test Resting HR: 74 Pre Test Resting BP: 132/67 Minimum Test HR: 68 Maximum Test HR: 96 Minimum Test BP: 0/0 Maximum Test BP: 163/71 Reason for Test Termination: Syncope Physician Tilt Table Report - Patient's Physicians Primary Care Physician: Amanda Hankins Indications/Diagnosis: Recurrent syncope. 79-year-old lady with a history of syncope of unknown etiology. Procedure Comments: The patient was brought into the cardiovascular [place] tilt table lab and after appropriate informed consent was obtained the patient was strapped to the tilt table. Initial blood pressure was noted to be 132/67 mmHg and a heart rate of 74 bpm. The patient was then placed in the 70 degrees upright tilt table position with continuous heart rate monitoring and intermittent blood pressure monitoring. The patient maintained sinus rhythm as well as a normal blood pressure with a tish of 119/62 mmHg she was mentating well. After the appropriate 20-minute. The tilt table was placed flat and she was administered 0.4 mg of sublingual nitroglycerin. The patient was then placed in the upright tilt position. Blood pressure was unobtainable patient was cold and clammy and nauseated. Heart rate reached a peak of approximately 96 bpm. Tilt table was then placed back in the horizontal position with improvement in blood pressure 201/55. Final blood pressure 163/71 with a heart rate of 76 bpm. Summary: Abnormal tilt table test with likely evidence of orthostatic hypotension. No obvious vasovagal or postural orthostatic tachycardia syndrome noted. Recommendations: Would recommend discontinuing diuretic. Continue beta-bethel Add ARB for blood pressure control. Increase fluid intake.
[2019-12-05 18:29] VITALS: BP 0/0; BP 132/67; BP 163/71
== END ==
PROVIDERS: PCP Nurse Practitioner Primary Care; Referring Provider Psychiatry & Neurology Neurology; Visit Provider Psychiatry & Neurology Neurology
DX: R55 Syncope and collapse (principal)
CPT/HCPCS: 93660; J7040; A4216

== ENCOUNTER 2019-12-12 11:24 | Emergency (ER) | payer MEDICARE, SELFPAY ==
[2019-11-24 07:52] VITALS: BMI 25.4
[2019-12-12 11:26] VITALS: BP 190/86; PULSE 99; RESP 16; TEMP 36.6; O2SAT 97; BMI 25.3
--- NOTE | 2019-12-12 12:52 | EKG12_ITS ---
Test Reason : Blood Pressure : / mmHG Vent. Rate : 086 BPM Atrial Rate : 086 BPM P-R Int : 164 ms QRS Dur : 076 ms QT Int : 368 ms P-R-T Axes : 058 016 037 degrees QTc Int : 440 ms Normal sinus rhythm Normal ECG Confirmed by SILVIA CROSS ([id number]), image editor TAMARA MENDOZA ([id number]) on 12/14/2019 9:32:14 AM Referred By: IBNA Confirmed By:SILVIA CROSS
--- NOTE | 2019-12-12 12:53 | ED.DCSUM_ITS ---
History of Present Illness Chief Complaint: Hypertension Informant: Patient, Significant Other Narrative: Patient presents the emergency department for evaluation of hypertension. She tells me that she has been undergoing multiple test for vasovagal syncope. As part of that work-up she sees . She had her atenolol and hydrochlorothiazide changed to losartan. She states that this change occurred over the weekend and Wednesday she had a blood pressure reading of 160 and today up to 180 and 190. She notes a generalized headache. No chest pain or shortness of breath. She also has noted that her heart rate has been higher than normal into the 90s Past Medical History - Allergies and Home Meds Allergies/Adverse Reactions: Allergies codeine Allergy (Verified 12/12/19 11:29) Nausea Penicillins Allergy (Verified 12/12/19 11:29) Rash sulfamethoxazole [From Septra] Allergy (Verified 12/12/19 11:29) Unknown trimethoprim [From Septra] Allergy (Verified 12/12/19 11:29) Rash meperidine HCl [From Demerol] Adverse Reaction (Verified 12/12/19 11:29) Nausea Primary Care Physician: Amanda Hankins NP-C [Primary Care Provider] - Surgical History: - - lumpectomy for breast cancer Smoking Status: Never smoker Review of Systems General: Denies: Chills, Fever, Sweats Eyes: Denies: Visual changes - bilaterally, Diplopia ENT: Denies: Rhinorrhea, Sore throat Cardiovascular: Reports: Palpitations, Heart racing. Denies: Chest pain Respiratory: Denies: Dyspnea, Cough, Dyspnea on exertion Gastrointestinal: Denies: Abdominal pain, Nausea, Vomiting, Diarrhea, Melena, Hematochezia Genitourinary: Denies: Dysuria, Hematuria, Frequency Musculoskeletal: Denies: Back pain, Extremity Pain Skin: Denies: Rash, Wounds Neurological: Reports: Headache. Denies: Weakness, Numbness Physical Exam Vital Signs/Narrative: Vital Signs Temp Pulse Resp BP Pulse Ox 12/12/19 11:26 97.8 F 99 16 190/86 H 97 Inital Vital Signs reviewed: Yes General: Well nourished, Well developed, No Acute Distress Head: Normocephalic, Atraumatic Eyes: Perrl, EOMI ENT: Moist mucous membranes, No rhinorrhea Neck: Supple, Nontender Cardiovascular: Regular rate, Regular rhythm, No murmurs Respiratory: No distress, CTA bilaterally, Chest nontender Abdomen: Soft, Nontender, Nondistended, Normal bowel sounds Back: Nontender, Normal Inspection Extremities: Nontender, No edema Skin: Normal color, No rash Neurological: Alert, Oriented x3, Cranial nerves II-XII grossly intact, Normal Strength, Normal Sensation Psychological: Normal affect, Normal Mood Diagnostic/Tx/Re-eval - Medical Decision Making I reviewed Dr. Rodriguez's note from the end of October. EKG shows a normal sinus rhythm. Creatinine is normal. Patient received a dose of labetalol and a secondary dose of losartan. Case was discussed with Dr. Rust who is cover ing Dr. Rodriguez. We will have her change her home dose of losartan to 100 mg once a day and follow-up in the office. ED Disposition - Plan for ED Patient: Disposition: Home or Assisted Living Diagnosis: Hypertension Instructions: HYPERTENSION, Established, Out of Control Prescriptions: Losartan Potassium 100 mg PO DAILY #30 tab Transmission Status: Pending to [address] Referrals: London Rodriguez MD [STAFF PHYSICIAN] - As soon as possible
[2019-12-12 13:10] LABS: Anion Gap 5 (5-15); BUN 21 mg/dL (7-18); BUN/Creat Ratio 22.3 RATIO (10-20); Calcium,Total 10.3 mg/dL (8.5-10.1); Chloride 100 mmol/L (98-107); Creatinine, Serum 0.94 mg/dL (0.55-1.02); EST Glomerular Filtration Rate 61 mL/min (>60); Est Glom Filt Rate - Afr Amer 74 mL/min (>60); Estimated Creatinine Clearance 36.02 ml/min; Glucose 99 mg/dL (74-106); Potassium 4.2 mmol/L (3.5-5.1); Sodium Level 134 mmol/L (136-145)
[2019-12-12 13:40] VITALS: BP 184/73; PULSE 93; RESP 15; O2SAT 95
[2019-12-12] MEDS: Losartan Potassium 50 MG Tablet PO (13:50)
--- NOTE | 2019-12-12 14:03 | ED.RN ---
called pharmacy for labatelol, none in pixis in the front or backl
[2019-12-12] MEDS: Labetalol 20 MG/4 ML Vial 10 MG IV (14:20)
[2019-12-12 14:58] VITALS: BP 186/73; PULSE 81
== END 2019-12-12 15:00 | disposition home or self-care (01) ==
PROVIDERS: Emergency Provider Emergency Medicine; PCP Nurse Practitioner Primary Care
DX: I10 Essential (primary) hypertension (principal)
CPT/HCPCS: 80048; 93005; 96374; 99284

== ENCOUNTER → 2019-12-25 12:27 | Outpatient (CLI) | payer MEDICARE, SELFPAY ==
[2019-12-18 09:35] VITALS: BMI 25.3
--- NOTE | 2019-12-25 12:30 | MRI_ITS ---
STUDY: MRI BRAIN WITH AND WITHOUT CONTRAST-ATTENTION ORBITS REASON FOR EXAM: Female, 79 years old. 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 IV Dotarem 12ml was administered for the contrast portion of the examination. COMPARISON: MRI BRAIN-September 01, 2019 FINDINGS: Status post bilateral ocular lens implants. 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 Normal bilateral optic nerve sheath complexes and optic nerves. Normal bilateral intraconal and extraconal spaces. Normal bilateral extraocular muscles. There is mild diffuse volume loss of the cerebral hemispheres with mild sulcal and ventricular prominence. There are no chronic white matter ischemic changes of the supratentorial brain. Normal diffusion weighted images without an acute ischemic process. Normal T2*GRE images without susceptibility artifact. Normal optic chiasm and post-chiasmatic tracts. Normal sella turcica, pituitary gland, infundibular stalk, and hypothalamus. Normal bilateral cavernous sinuses. Normal tectal plate and pineal gland. Normal flow voids within the major intracranial circulation suggesting patency by spin echo criteria. There is no extra-axial fluid accumulation. Normal midbrain, cem and medulla. Normal cerebellum. Normal basal cisterns. MRI/Brain W/WO Contrast IMPRESSION: 1. Mild cerebral atrophy but without chronic white matter ischemic changes. 2. No acute or evolving ischemic process. 3. Mild staphyloma the bilateral globes but with otherwise normal orbits. 4. Status post bilateral ocular lens implants. Electronically Signed: Tavo Gao, at 14:23 EST Tel , Service support ,
== END ==
PROVIDERS: PCP Nurse Practitioner Primary Care; Referring Provider Psychiatry & Neurology Neurology; Visit Provider Psychiatry & Neurology Neurology
DX: H53.2 Diplopia (principal)
CPT/HCPCS: 70553; A9575

== ENCOUNTER 2020-01-02 10:00 | Outpatient (RCR) | payer MEDICARE, SELFPAY ==
[2019-11-17 13:16] VITALS: BMI 24.9
[2019-11-24 07:52] VITALS: BMI 25.4
--- NOTE | 2019-11-24 13:53 | HP.PTEVAL_ITS ---
Patient's Visit Information AUSTIN GARCIA is a 79 year old F referred to Physical Therapy by Adam Conteh MD with a diagnosis of Gait imbalance. Date of Evaluation: 11/24/19 Physical Therapist: Dick Irby, DPT, OCS, CSCS - Visit Plan Frequency: 1-2x /Week Duration: 4-6 Weeks Plan: Neurocom test and therapy as needed to teach appropriate exercises to manage. - Subjective Findings: Fainting spell in August and passed out. Spent night at the hosptial with ots of testing and scans. Has valve regurgitation. No problems in head with scans and EKG was normal. Has PVC which is normal for her. Saw [facility] as follow up. Says that balance is off and maybe neuropathy. Lots f blood tests but no results. Will ahve tilt table test. Will have EMG. No other treatments. No spinning but unsteady which is normal for her. Had cataract surgery last July and unsteadyness is worse. Feet legs feel normal to her. No cane or walker needed. Does own housework and basic ADLs and feels oK maybe shaky but no problem. Retired RN. Sleep is not great but has been put on meds for that.Hobbies include reading adn [employer] which have not been held back. No falls - Objective Walks in and out of PT I without balance anomalies. trasnfers without UE I. Steps reciprocal without a rail. reflexes patella and achilles 3/3 B. Sensation WNL to gross light touch in LE. Strength LE 4+/5 without myotomal abnormalities. Coordination to reciprocal toe adn heel tap is OK and heel to kwan test is good B. Tightness present in gastroc and soleus but functional. - Balance Scores Functional Gait Assessment Score: 27 % Disability: 10.0000 CATSIB Score (Max score 120 seconds): 120 - Goals Goal 1:: Pt feel balance normal and not hesitant to walk. Goal Time Frame: 4-6 Weeks Goal 2:: I approp HEp to manage any deficits found in balance Goal Time Frame: 4-6 Weeks Goal 3:: Neurocom balance test adn review results. Goal Time Frame: 4-6 Weeks - Rehabilitation Potential Physical Therapy Diagnosis: Gait imbalance Rehabilitation Potential: Questionable - Anticipated Interventions Patient/Client Instruction: Educate patient on: Condition, Risk Factors For the Purpose of:: To improve safety with gait Therapeutic Exercise to Include: Balance training, Neuromotor development For the Purpose of:: To improve balance, To improve safety with gait Thank you for the opportunity to evaluate your patient. For Medicare and Medicare HMO plans, please review the plan of care and approve it. It will need to be FAXED BACK to us at [phone] for Medicare purposes. For Medicare only, by signing this I certify the plan of care. Please let me know if there are questions or concerns regarding this plan of care. Physician Signature: Date:
--- NOTE | 2019-11-27 14:37 | HP.PTCOM ---
PT Communication Note 11/27/[address] Adam Conteh MD , Thank you for the referral of Allison to [facility] for Balance Assessment. I have enclosed a copy of the results for your review. In summation, she scored low on the vestibular portion of the [employer]ensory [employer] test. Other testing including Motor Control test which may olive picker on neuropathy were normal. With this result in mind, I plan to see Allison 2x/week for 4 weeks for balance adn LE/postural strength instruct to HEP and then retest SOT and balance. Please do not hesitate to call if you have questions regarding these results. Sincerely, Dick Irby, DPT, OCS, CSCS Contact Information
--- NOTE | 2020-01-02 10:29 | HP.PTDCSUM ---
HP - PT D/C Summary It has been my pleasure to treat AUSTIN GARCIA referred by Adam Conteh MD, with the diagnosis of Gait imbalance for a total of 9 visit(s). Discharge Date: 01/02/20 Please see the following information for a summary of their discharge status. - Subjective Subjective: Doing better. Has prism on glasses that seems to help vision and consequently, balance. Feels like she is getting around safer. Doing exercises at home daily. To Dr. Conteh on 01/10 - Overall Improvement % Improvement: 75 - Objective Objective/Function: SOT:significant 20 point improvement and visual and vestibular now normal. FGA is +2 today. safe and I with ambulation with prism on today. Feels confident adn ready to cotninue via HEP. - Goals Goal 1:: Pt feel balance normal and not hesitant to walk. Goal Progress: Progressing Goal 2:: I approp HEp to manage any deficits found in balance Goal Progress: Goal Met Goal 3:: Neurocom balance test adn review results. Goal Progress: Goal Met - Plan Plan: d/c - D/C Information Discharge Comments: Much better objectively in testing adn will continue via HEP If there are questions or concerns regarding this patient's physical therapy, please feel free to call me at [phone]. Thank you for the referral of this patient. Sincerely, Dick Irby, DPT, OCS, CSCS
== END 2020-01-02 19:00 | disposition home or self-care (01) ==
LOC: PT 10:00
PROVIDERS: PCP Nurse Practitioner Primary Care; Visit Provider Psychiatry & Neurology Neurology
DX: R26.81 Unsteadiness on feet (principal)
CPT/HCPCS: 97110; 97162; 97164; 97750

== ENCOUNTER → 2021-03-27 13:06 | Outpatient (CLI) | payer MEDICARE, SELFPAY ==
[2020-07-19 08:49] VITALS: BMI 25.3
--- NOTE | 2021-03-27 13:08 | ECHODONC_ITS ---
Version 2 Reason For Study: ABN EKG Procedure This was a 2D Doppler, Color Flow transthoracic echocardiogram. Exam performed in department. Left Ventricle Normal LV size. Left ventricular systolic function is normal. The estimated ejection fraction is 65 %. Stage 1 diastolic dysfunction. No regional wall motion abnormalities noted. Right Ventricle Normal RV size. Normal systolic function. Atria Normal left atrium. Normal right atrium. Mitral Valve Mild focal mitral valve calcification. Mild (1+) eccentric mitral valve insufficiency. Tricuspid Valve Normal tricuspid valve. Mild tricuspid valve insufficiency. Aortic Valve Trisinus/trileaflet aortic valve. Mild focal aortic valve calcification. Mild (1+) aortic valve insufficiency. Pulmonic Valve Normal pulmonic valve. Great Vessels Normal aortic root. The pulmonary artery is normal size. Normal inferior vena cava. Pericardium/Pleural No pericardial effusion. MMode/2D Measurements & Calculations LVIDd: 3.9 cm IVSd: 0.91 cm Ao root diam: 2.8 cm LVIDs: 2.4 cm LVPWd: 0.94 cm RVDd: 3.0 cm FS: 37.3 % LAV(MOD-bp): 54.7 ml LA A4 area: 14.7 cm2 LA dimension(2D): 3.1 cm LAV(MOD-bp) Indexed: 34.2 ml/m2 LAV(MOD-sp2): 64.4 ml LAV(MOD-sp4): 36.8 ml RA A4 area: 15.1 cm2 Time Measurements MV dec time: 0.23 sec Doppler Measurements & Calculations MV E max onesimo: 67.5 cm/sec Lat Peak E' Onesimo: 7.2 cm/sec Med Peak E' Onesimo: 6.8 cm/sec MV A max onesimo: 74.1 cm/sec E/E' lat: 9.3 E/E' med: 9.9 MV E/A: 0.91 Ao V2 max: 159.4 cm/sec AI max onesimo: 401.6 cm/sec LV V1 max: 132.4 cm/sec Ao max P.2 mmHg AI max P.9 mmHg LV V1 max P.0 mmHg Ao V2 mean: 97.1 cm/sec AI dec slope: 299.7 cm/sec2 LV V1 mean P.3 mmHg Ao mean P.4 mmHg AI P1/2t: 392.5 msec LV V1 mean: 84.8 cm/sec Ao V2 VTI: 32.5 cm LV V1 VTI: 28.0 cm PA V2 max: 90.4 cm/sec TR max onesimo: 248.9 cm/sec TR max P.8 mmHg ECHO/ONC Echo Complete Interpretation Summary Normal LV size. Left ventricular systolic function is normal. The estimated ejection fraction is 65 %. Mild (1+) eccentric mitral valve insufficiency. Stage 1 diastolic dysfunction. The global longitudinal strain is normal. The global longitudinal strain = -22. 4 % (normal). The prior global longitudinal strain was -23.9 % . Compared to previous study, the left ventricular systolic function is the same.. Ordering Physician: London Rodriguez Referring Physician: Amanda Hankins Performed By: Elen Lopez, PORTIA, RVT
== END ==
PROVIDERS: PCP Nurse Practitioner Primary Care; Referring Provider Internal Medicine Cardiovascular Disease; Visit Provider Internal Medicine Cardiovascular Disease
DX: R00.0 Tachycardia, unspecified (principal); R55 Syncope and collapse; I10 Essential (primary) hypertension; I51.9 Heart disease, unspecified; Z71.9 Counseling, unspecified; M85.80 Other specified disorders of bone density and structure, unspecified site; D05.12 Intraductal carcinoma in situ of left breast; E88.09 Other disorders of plasma-protein metabolism, not elsewhere classified
CPT/HCPCS: 93306; 93356

== ENCOUNTER → 2023-07-02 | Outpatient (CLI) | payer MEDICARE, SELFPAY ==
[2023-07-02 13:46] LABS: Hematocrit 38.5 % (37-47); Hemoglobin 12.8 g/dL (12.0-15.0); Mean Corp Hgb Conc 33.2 g/dL (32-36); Mean Corpuscular Hgb 31.4 pg (27.0-32.0); Mean Corpuscular Volume 94.4 fL (81-99); Mean Platelet Vol. 9.6 fl (6.2-12.0); Platelet Count 259 K/mm3 (150-450); RBC Distribution Width CV 12.9 % (11.6-14.6); RBC Distribution Width SD 44.5 fl (35.1-43.9); Red Blood Count 4.08 M/mm3 (4.2-5.4); White Blood Count 6.4 K/mm3 (4.4-11.0)
[2023-07-02 14:25] LABS: Anion Gap 2 (5-15); BUN 20 mg/dL (7-18); BUN/Creat Ratio 21.4 RATIO (10-20); Calcium,Total 9.2 mg/dL (8.5-10.1); Chloride 100 mmol/L (98-107); Creatinine, Serum 0.94 mg/dL (0.55-1.02); EST Glomerular Filtration Rate 61 mL/min (>60); Est Glom Filt Rate - Afr Amer 74 mL/min (>60); Glucose 101 mg/dL (74-106); Potassium 4.5 mmol/L (3.5-5.1); Sodium Level 133 mmol/L (136-145); Thyroid Stim Hormone (TSH) 1.96 uIU/mL (0.358-3.74)
== END | disposition home or self-care (01) ==
PROVIDERS: PCP Nurse Practitioner Primary Care; Referring Provider Nurse Practitioner Gerontology; Visit Provider Nurse Practitioner Gerontology
DX: R42 Dizziness and giddiness (principal); R55 Syncope and collapse; I10 Essential (primary) hypertension
CPT/HCPCS: 36415; 80048; 84443; 85027

== ENCOUNTER 2023-12-21 16:38 | Emergency (ER) | payer MEDICARE, SELFPAY ==
[2023-12-21 16:38] VITALS: BP 230/67; PULSE 68; RESP 16; TEMP 36.6; O2SAT 98; BMI 26.1
--- NOTE | 2023-12-21 17:05 | CT_ITS ---
STUDY: CT BRAIN WITHOUT CONTRAST REASON FOR EXAM: Female, 83 years old. headache and hypertension RADIATION DOSAGE (If Supplied By Facility): CTDIvol = ( 44.99 ) mGy, DLP = ( 812.98 ) mGycm TECHNIQUE: Transaxial CT imaging of the brain was performed without administration of intravenous contrast material. Individualized dose optimization techniques were used for this CT. COMPARISON: September 01, 2019 FINDINGS: Normal soft tissue structures. Normal calvarium. Calcific plaquing of the cavernous carotids Mild atrophy and periventricular white matter ischemic changes. Normal basal ganglia and thalami. Normal brainstem. Normal cerebellum. There is no intracranial hemorrhage. There are no findings of an acute ischemic infarction. Normal visualized paranasal sinuses. Postsurgical changes of the orbits CT/Brain/Head without Contrast IMPRESSION: Mild atrophy and periventricular white matter ischemic change.. No mass or acute bleed. If concern for acute infarct MRI recommended Electronically Signed: Jeremy Farooq MD at 18:38 EST ,
--- NOTE | 2023-12-21 17:08 | EX.ED.DYSGE1 ---
HPI History of Present Illness Chief Complaint: Hypertension Informant: patient Onset/Context/Timing Onset: Days Context: Gradual Onset Timing: Continuous Current Severity: Mild Maximum Severity: Mild Narrative Narrative: 83-year-old female treated for hypertension for the last 3 years she has been on atenolol 50 mg once a day that she takes in the morning. Prior to that she was on losartan. Said her blood pressure has been well-controlled and her checks them regularly at home. Today she was at the [facility] having evaluation for possible foot surgery and her blood pressures read 188/65 and 193/66. She has over the last several days to week had a mild headache. No falls or head trauma. No blood thinners. Denies any trouble using her arms or legs. Prior similar symptoms: No Recent Illness/Hospitalization: No PFSH [facility] Medical History Abnormal tilt table test (12/05/19) Anemia Breast cancer COVID-19 Diastolic dysfunction Ductal carcinoma in situ (DCIS) of left breast Encounter for education Essential (primary) hypertension History of breast cancer History of ductal carcinoma in situ (DCIS) of breast Hyperproteinemia Migraines Nonrheumatic aortic (valve) insufficiency Osteopenia Other specified disorders of bone density and structure, unspecified site RIGHT LOWER JAW LASER SURGERY Screening for breast cancer Screening for osteoporosis Secondary pulmonary arterial hypertension Syncope Tachyarrhythmia Vaginal dryness Home Medications calcium carbonate 600 mg-vitamin D3 20 mcg (800 unit) tablet 1 tab PO DAILY@0800 10/02/14 [History Last Taken 08/31/19] multivitamin,dt-xiuv-pzakhjmk 27 mg-0.4 mg tablet 1 tab PO DAILY 10/02/14 [History Last Taken 08/31/19] vitamin B complex 1 tab PO DAILY 10/02/14 [History Last Taken 08/31/19] L.acidoph, paracasei,B. lactis 10 billion cell capsule 1 - 2 tab PO DAILY 11/21/15 [History Last Taken 08/31/19] acetaminophen 500 mg tablet 500 mg PO Q6H PRN PRN Moderate Pain (4-5/10) 11/21/15 [History Last Taken Unknown] carboxymethylcellulose sodium 0.5 % eye drops 1 drp EACH EYE 4X/DAY PRN PRN eye dryness 09/01/19 [History Last Taken 08/31/19] escitalopram oxalate 10 mg tablet 10 mg PO BID 09/25/22 [History Last Taken Unknown] atenolol 50 mg tablet 50 mg PO DAILY #90 tabs 02/15/23 [Rx Last Taken Unknown] lactulose 10 gram/15 mL oral solution (Constulose) 30 ml PO QHS 12/21/23 [History Last Taken Unknown] levothyroxine 25 mcg tablet 25 mcg PO DAILY 12/21/23 [History Last Taken Unknown] Allergy/AdvReac Type Severity Reaction Status Date / Time codeine Allergy Nausea Verified 12/21/23 16:42 Penicillins Allergy Rash Verified 12/21/23 16:42 sulfamethoxazole Allergy shortness Verified 12/21/23 16:42 [From Septra] of breath trimethoprim [From Septra] Allergy Rash Verified 12/21/23 16:42 losartan AdvReac Intermediate Dizziness Verified 12/21/23 16:42 and lightheaded meperidine HCl [From Demerol] AdvReac Nausea Verified 12/21/23 16:42 Family History Mother Heart disease Father Heart disease Father Hypertension Surgical History History of appendectomy History of bilateral cataract extraction History of dilatation and curettage History of eyelid surgery History of root canal procedure History of tonsillectomy History of tooth extraction Hx of arthroscopic knee surgery Social History Smoking Status: Never smoker ROS ROS ED ROS Narrative Mild headache. Elevated blood pressure today only. Review of Systems ROS Unobtainable: Denies due to encephalopathy Constitutional Constitutional ED: Denies chills or fever(s) Eyes Eyes: Denies blurry vision ENT ENT ED: Denies ear pain Cardiovascular Cardiovascular: Denies chest pain Respiratory/Chest Respiratory/Chest: Denies cough or dyspnea Gastrointestinal Gastrointestinal: Denies abdominal pain Genitourinary Genitourinary ED: Denies dysuria or hematuria Musculoskeletal Musculoskeletal: Denies arthralgias or back pain Integumentary Denies abscess Neurologic Neurologic: Reports headache(s); Denies paresthesias or weakness Psychiatric Psychiatric: Denies anxiety or depression Endocrine Endocrinology: Denies cold intolerance Hematologic/Lymphatic Hematologic/Lymphatic: Reports none Allergic/Immunologic Allergic/Immunologic ED: Denies mouth swelling, tongue swelling or urticaria EXAM Physical Exam Narrative Exam Narrative: Well-appearing 83-year-old female. present at bedside. Vital signs are stable blood pressure elevated was 230/67. Currently at 215/71. HEENT exam normal. Pupils round reactive light. No facial droop. Normal speech. No trauma. Neck nontender. Lungs clear to auscultation bilaterally. Heart regular rhythm no murmur rate about 70. Abdomen soft nontender. Moving all 4 extremities. Nontender no edema. 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 Dorsi plantarflexion intact. Neurologic exam normal. NIH 0. Fingertip to nose within normal limits no drift. Answering questions following commands. Acting normally. Const Vital Signs: 12/21/23 16:38 12/21/23 17:35 12/21/23 17:38 Temperature 97.8 F Temperature Source Temporal Pulse Rate 68 61 Respiratory Rate 16 21 H Respiratory Effort Normal Respiratory Pattern Normal Blood Pressure 230/67 H 177/53 H Blood Pressure Mean 121 94 Pulse Ox 98 97 Oxygen Delivery Method Room Air 12/21/23 19:00 Temperature Temperature Source Pulse Rate 59 L Respiratory Rate 17 Respiratory Effort Respiratory Pattern Blood Pressure 196/53 H Blood Pressure Mean 100 Pulse Ox 96 Oxygen Delivery Method Positive well nourished and well developed; Negative for obese, cachectic, contractures or unkempt General Appearance ED: well developed and NAD; Negative for unkempt, cachectic, contractures, cyanotic or diaphoretic Nutritional Appearance: Negative for cachectic or obese HEENT Reports moist mucous membranes; Denies dry mucous membranes Negative for trauma or tenderness Mouth ED: No dry mucous membranes Mouth: No dry mucous membranes Eyes PERRL and EOMs intact bilaterally General Eye ED: Negative for pale conjunctiva or scleral icterus Neck no lymphadenopathy, supple and no JVD General: Negative for tenderness or other Lymph Lymphatic: Negative for other Chest Wall inspection of chest normal and palpation of chest normal Chest: Negative for other Resp normal respiratory effort and clear to auscultation bilaterally Effort and Inspection: Negative for retractions Auscultation: Negative for rales, rhonchi or wheezes Cardio regular rate, regular rhythm, S1 normal heart sound, S2 normal heart sound and no murmurs Palpation: Negative for palpable S3 or palpable S4 Rate: Negative for bradycardia or tachycardic Rhythm: Negative for abnormal rhythm GI normal to inspection, nondistended, normoactive bowel sounds, non-tender, non-distended and no masses Inspection: Negative for abdominal distention Auscultation: normoactive bowel sounds Palpation: soft; Negative for tender or guarding Back/Spine no CVA tenderness General Back: Negative for CVA tenderness Cervical Spine: Negative for cervical spine tenderness Thoracic Spine / Upper Back: Negative for thoracic spinal tenderness Lumbar Spine / Lower Back: Negative for lumbar spinal tenderness Extremity normal to inspection General Extremety ED: Negative for edema, tenderness or other findings General Extremity: Negative for edema or other findings Neuro oriented x3, CN's II-XII intact bilaterally and no sensory deficits noted Sensorium / Orientation: alert Motor Exam: strength 5/5 throughout Psych mental status grossly normal Appearance: Negative for unkempt Attitude: No agitated Mood & Affect: Negative for depressed, anxious or tearful Skin no rashes or lesions noted and no wounds Lesions: No lesion noted Rashes: No rashes noted Trauma: Negative for abrasion Wounds: Negative for wounds noted MDM MDM MDM Narrative Medical decision making narrative: 83-year-old with elevated blood pressure. Previously her blood pressures and controlled well on her medications. She is stating that she has been under more stress recently. Screening labs will be obtained to check her kidney function. I am doing a CT of her head due to her headache but she has a completely normal neurologic exam and my suspicion for intracranial bleed is quite low. Repeat exam at 7:10 PM patient is doing well. Current blood pressure is 190/52. She is awake alert. Feeling fine. Smiling and laughing. We discussed her test results. He will be discharged home. Continue her current blood pressure medication each morning because it has been controlling her blood pressure well. Log of blood pressures and follow-up with her orchestrator Dr. Rodriguez. History & Record Review Discussion w/independent historian: Patient and Family Additional record(s) reviewed:: Prior inpatient record, Prior outpatient record, Prior ED visit and Prior labs Lab Data Attestation: I reviewed the patient's lab results. Lab results narrative: CBC normal. White count is 6. 13 and 38. Platelets 246. Electrolytes normal. Gap 6. Normal BUN of 15 creatinine 0.7. CAT scan of the brain normal. Labs: Laboratory Results - last 24 hr 12/21/23 17:35 WBC 6.5 RBC 4.22 Hgb 13.0 Hct 38.7 MCV 91.7 MCH 30.8 MCHC 33.6 RDW Std Deviation 44.5 H RDW Coeff of Jess 13.2 Plt Count 246 MPV 9.8 Immature Gran % (Auto) 0.300 Neut % (Auto) 54.3 Lymph % (Auto) 31.0 Coryell % (Auto) 11.5 H Eos % (Auto) 2.1 Baso % (Auto) 0.8 Absolute Neuts (auto) 3.6 Absolute Lymphs (auto) 2.03 Nucleated RBC % 0 Sodium 136 Potassium 4.2 Chloride 101 Carbon Dioxide 29.0 Anion Gap 6 BUN 15 Creatinine 0.78 Estim Creat Clear Calc 44.43 Est GFR (MDRD) Af Amer 91 Est GFR (MDRD) Non-Af 75 BUN/Creatinine Ratio 19.4 Glucose 100 Calcium 9.6 Radiography Diagnostic Testing: Clinical Impression(s) from Imaging Studies Brain CT 12/21/23 17:05 IMPRESSION: Mild atrophy and periventricular white matter ischemic change.. No mass or acute bleed. If concern for acute infarct MRI recommended Electronically Signed: Jeremy Farooq MD at 18:38 EST Reading Location ID and State: [address] [place] [address] Tel , Service support , Discharge Plan Triage Chief Complaint: Hypertension ED Provider: Albin Nunn Dx/Rx/DC Orders Clinical Impression: Chronic hypertension Instructions: ED High Blood Pressure Hypertension Prescriptions: No Action vitamin B complex 1 EACH tablet 1 tab PO DAILY Patient Comments: by mouth multivitamin,zi-tvhy-klkwlcel 1 TABLET tablet 1 tab PO DAILY calcium carbonate-vitamin D3 1 TAB tablet 1 tab PO DAILY@0800 acetaminophen 500 MG tablet 500 mg PO Q6H PRN PRN (Reason: Moderate Pain (4-5/10)) L.acidoph, paracasei,B. lactis 1 EACH capsule 1 - 2 tab PO DAILY escitalopram oxalate 10 mg tablet 10 mg PO BID carboxymethylcellulose sodium 15 ML drops 1 drp EACH EYE 4X/DAY PRN PRN (Reason: eye dryness) levothyroxine 25 mcg tablet 25 mcg PO DAILY lactulose [Constulose] 10 gram/15 mL solution 30 ml PO QHS Patient Comments: take 40 milliliters by mouth once daily atenolol 50 mg tablet 50 mg PO DAILY Qty: 90 3RF Primary Care Provider: Amanda Hankins NP Referrals: London Rodriguez MD [Med Staff - Active Staff] - As soon as possible Amanda Hankins NP, [employer] [Primary Care Provider] - Activity Restrictions/Additional Instructions: Continue take your same blood pressure medication each morning like you have been. Log your blood pressures twice daily when you are calm and relaxed. Show these to Dr. Rodriguez when you follow-up with him or your primary care provider. If your blood pressures are running well they may not to do anything. If they are running high they may at the adjust your current medication or change medication. I would consider getting a blood pressure machine from a local pharmacy or store that we can check that compared to your manual blood pressures. Disposition Disposition: Home, Self Care
[2023-12-21 17:35] VITALS: BP 177/53; PULSE 61; RESP 21; O2SAT 97
[2023-12-21 17:56] LABS: Absolute Lymphocyte Count 2.03 X10^3/uL (0.83-4.51); Absolute Neutrophil Count 3.6 X10^3/uL (2.0-7.7); Basophil# 0.05 X10^3/uL; Basophil% 0.8 % (0-1); Eosinophil# 0.14 X10^3/uL; Eosinophils% 2.1 % (0-5); Hematocrit 38.7 % (37-47); Lymphocyte # 2.03 X10^3/ul (0.83-4.51); Mean Corp Hgb Conc 33.6 g/dL (32-36); Mean Corpuscular Hgb 30.8 pg (27.0-32.0); Mean Corpuscular Volume 91.7 fL (81-99); Mean Platelet Vol. 9.8 fl (6.2-12.0); Monocyte# 0.75 X10^3/uL; Monocyte% 11.5 % (0-10); NRBC Flagged by Analyzer 0 % (0-5); Neutrophil # 3.55 X10^3/uL (2.7-7.7); Neutrophil % 54.3 % (47-70); Platelet Count 246 K/mm3 (150-450); RBC Distribution Width CV 13.2 % (11.6-14.6); RBC Distribution Width SD 44.5 fl (35.1-43.9); Red Blood Count 4.22 M/mm3 (4.2-5.4); White Blood Count 6.5 K/mm3 (4.4-11.0)
[2023-12-21 18:20] LABS: Anion Gap 6 (5-15); BUN 15 mg/dL (7-18); BUN/Creat Ratio 19.4 RATIO (10-20); Calcium,Total 9.6 mg/dL (8.5-10.1); Chloride 101 mmol/L (98-107); Creatinine, Serum 0.78 mg/dL (0.55-1.02); EST Glomerular Filtration Rate 75 mL/min (>60); Est Glom Filt Rate - Afr Amer 91 mL/min (>60); Estimated Creatinine Clearance 44.43 ml/min; Glucose 100 mg/dL (74-106); Potassium 4.2 mmol/L (3.5-5.1); Sodium Level 136 mmol/L (136-145)
[2023-12-21 19:00] VITALS: BP 196/53; PULSE 59; RESP 17; O2SAT 96
[2023-12-21 19:22] VITALS: BP 158/56; PULSE 64; RESP 14; TEMP 36.3; O2SAT 96
== END 2023-12-21 19:25 | disposition home or self-care (01) ==
PROVIDERS: Emergency Provider Emergency Medicine; PCP Nurse Practitioner Primary Care; Visit Provider Emergency Medicine
DX: I10 Essential (primary) hypertension (principal); R51.9 Headache, unspecified; Z79.899 Other long term (current) drug therapy; Z85.3 Personal history of malignant neoplasm of breast; Z90.49 Acquired absence of other specified parts of digestive tract; Z98.41 Cataract extraction status, right eye; Z98.42 Cataract extraction status, left eye
CPT/HCPCS: 70450; 80048; 85025; 99284; A4216

== ENCOUNTER → 2024-10-31 | Outpatient (CLI) | payer MEDICARE, SELFPAY ==
--- NOTE | 2024-10-31 13:54 | ECHODONC_ITS ---
Version 2 Reason For Study: Antineoplastic Chemo Procedure This was a 2D Doppler, Color Flow transthoracic echocardiogram. Myocardial strain analysis was performed in this exam to aid in the assessment of cardiac function. Exam performed in department. Left Ventricle Normal LV size. The left ventricular ejection fraction is 65 %. Stage 1 diastolic dysfunction. No regional wall motion abnormalities noted. Right Ventricle Normal RV size. Normal systolic function. Atria Normal left atrium. Normal right atrium. Mitral Valve Moderate focal mitral valve calcification of the anterior leaflet. Tricuspid Valve Normal tricuspid valve. Aortic Valve Trisinus/trileaflet aortic valve. Mild (1+) aortic valve insufficiency. Pulmonic Valve Normal pulmonic valve. Great Vessels Normal aortic root. The pulmonary artery is normal size. Inferior vena cava collapse with respiration. Pericardium/Pleural No pericardial effusion. MMode/2D Measurements & Calculations LVIDd: 3.7 cm IVSd: 0.94 cm asc Aorta Diam: 3.0 cm LVIDs: 2.0 cm LVPWd: 0.86 cm RVDd: 3.8 cm FS: 47.8 % LAV(MOD-bp): 36.4 ml LVAd ap4: 20.2 cm2 SV(MOD-sp4): 32.6 ml LAV(MOD-bp) Indexed: 23.6 ml/m2 LVLd ap4: 6.6 cm SI(MOD-sp4): 21.2 ml/m2 LAV(MOD-sp2): 40.6 ml EDV(MOD-sp4): 50.2 ml LAV(MOD-sp4): 33.1 ml EDV(sp4-el): 52.9 ml LVAs ap4: 10.4 cm2 LVLs ap4: 5.3 cm ESV(MOD-sp4): 17.6 ml ESV(sp4-el): 17.5 ml EF(MOD-sp4): 65.0 % EF(sp4-el): 66.8 % SV(sp4-el): 35.3 ml LA A4 area: 14.9 cm2 LA dimension(2D): 3.6 cm RA A4 area: 18.2 cm2 TAPSE: 2.3 cm Time Measurements MV dec time: 0.20 sec Doppler Measurements & Calculations MV E max onesimo: 68.8 cm/sec Lat Peak E' Onesimo: 7.9 cm/sec Med Peak E' Onesimo: 6.5 cm/sec MV A max onesimo: 85.7 cm/sec E/E' lat: 8.7 E/E' med: 10.5 MV E/A: 0.80 Ao V2 max: 152.6 cm/sec AI max onesimo: 361.8 cm/sec MV dec slope: 346.8 cm/sec2 Ao max P.3 mmHg AI max P.4 mmHg Ao V2 mean: 98.0 cm/sec Ao mean P.6 mmHg AI dec slope: 261.0 cm/sec2 Ao V2 VTI: 36.4 cm AI P1/2t: 405.9 msec AV (velocity ratio): 0.78 LV V1 max: 127.0 cm/sec PA V2 max: 92.3 cm/sec PI end-d onesimo: 76.0 cm/sec LV V1 max P.4 mmHg LV V1 mean P.7 mmHg LV V1 mean: 91.5 cm/sec LV V1 VTI: 28.6 cm TR max onesimo: 274.1 cm/sec TR max P.1 mmHg ECHO/ONC Echo Complete Interpretation Summary The left ventricular ejection fraction is 65 %. Normal LV size. Moderate focal mitral valve calcification of the anterior leaflet. Stage 1 diastolic dysfunction. The global longitudinal strain is normal. The global longitudinal strain = -22. 2 % (normal). Ordering Physician: London Rodriguez Referring Physician: Amanda Hankins Performed By: Risa Flowers, PORTIA, RVT
== END | disposition home or self-care (01) ==
PROVIDERS: PCP Nurse Practitioner Primary Care; Referring Provider Internal Medicine Cardiovascular Disease; Visit Provider Internal Medicine Cardiovascular Disease
DX: I34.0 Nonrheumatic mitral (valve) insufficiency (principal)
CPT/HCPCS: 93306; 93356

== ENCOUNTER → 2025-02-28 | Outpatient (CLI) | payer MEDICARE, SELFPAY ==
[2025-02-28 12:49] LABS: SERUM TEARS COLLECTION SPECIMEN PROCESSED
== END | disposition home or self-care (01) ==
PROVIDERS: PCP Nurse Practitioner Primary Care; Referring Provider Ophthalmology; Visit Provider Ophthalmology
DX: H16.143 Punctate keratitis, bilateral (principal)